=== PATIENT | female | born 1970 | race Hispanic/Latino ===

== ENCOUNTER 2017-12-16 08:34 | Emergency (ER) | payer SELFPAY ==
[2017-12-16] MEDS ORDERED: Cyclobenzaprine 10 MG TAB ONE (09:33)
== END 2017-12-16 10:00 | disposition home or self-care (01) ==
LOC: ERS 08:34
DX: T14.8XXA Other injury of unspecified body region, initial encounter (principal); I10 Essential (primary) hypertension; Z79.899 Other long term (current) drug therapy; V89.2XXA Person injured in unspecified motor-vehicle accident, traffic, initial encounter
CPT/HCPCS: 99283